=== PATIENT | male | born 1980 | race Caucasian/White ===

== ENCOUNTER 2020-07-04 06:57 | Outpatient (NON) | payer OTHER, SELFPAY ==
[2020-07-04 18:51] LABS: SARS-CoV-2 RNA PCR Negative
== END 2020-07-04 06:58 ==
PROVIDERS: PCP Family Medicine; Visit Provider Nurse Practitioner Family
DX: Z20.828 Contact with and (suspected) exposure to other viral communicable diseases (principal); J34.89 Other specified disorders of nose and nasal sinuses
CPT/HCPCS: 87635; C9803; U0003